=== PATIENT | female | born 1995 | race Two or more races ===

== ENCOUNTER 2019-07-17 08:07 | Outpatient (CLI) | payer OTHER ==
--- NOTE | 2019-07-17 15:34 | MRI Report ---
Reason: PAIN IN RT KNEE Procedure Date: 07/17/2019 Accession Number: [id number] / [id number] Procedure: MRI - Knee RT W/O CPT Code: Final Report FULL RESULT: EXAM: RIGHT KNEE MRI WITHOUT CONTRAST EXAM DATE: 07/17/2019 09:02 AM. CLINICAL HISTORY: Pain in right knee. COMPARISON: None. TECHNIQUE: Multiplanar, multisequence T1-weighted and fluid-sensitive sequences of the knee without contrast. Other: None. FINDINGS: Cruciate ligaments: The anterior and posterior cruciate ligaments appear intact. Medial meniscus: Intact. No tear is identified. Lateral meniscus: Intact. No tear is identified. Collateral ligaments: The medial and fibular collateral ligaments appear intact. Bones and articular surfaces: The medial and fibular collateral ligaments appear intact. Bones and articular surfaces: Mild cartilage surface irregularity and heterogenous signal at the medial facet of the patella. No significant articular cartilage defects. No significant joint effusion. Extensor mechanism: Prominent edema in the lateral infrapatellar fat. The patellar tendon and quadriceps insertion appear intact. IMPRESSION: 1. Lateral infrapatellar fat pad impingement. 2. Mild patellar chondromalacia. RADIA
== END 2019-07-17 08:08 | disposition home or self-care (01) ==
LOC: DI 08:07
PROVIDERS: ATTEND Registered Nurse Diabetes Educator
DX: M22.41 Chondromalacia patellae, right knee (principal); M25.861 Other specified joint disorders, right knee

== ENCOUNTER 2021-05-05 08:25 | Outpatient (CLI) | payer OTHER ==
[2021-05-05 09:03] VITALS: BP 108/65
--- NOTE | 2021-05-05 09:03 | SLEEP CARE CONSULTATION ---
Information from patient questionnaire entered by Oumou Lombardi. I have reviewed and concur with the information entered by Oumou Lombardi. This document represents the service I personally performed and the decisions made by me, Daniela Boyer ARNP. History of Present Illness Service Date and Time: 05/05/2021 0825 Reason for Visit: New patient Chief Complaint: reports: Insomnia, Unrefreshed sleep, Snoring, Fatigue, Frequent awakenings at night Date of Onset: 1+ years Usual bedtime: 1054-9155 Time it takes to fall asleep: 30-60 minutes, sometimes longer Snores at night: Yes Observed to quit breathing while asleep: No Sleeps alone due to snoring: Yes Number of times waking at night: 2-3 Reasons for waking at night: reports: Snoring, Gasping for air (3 times a month), Bathroom, Other (unknown reason) Toss, Turn, or Twitch while sleeping: Yes Recalls having dreams: Yes (most of the time) Usually gets out of bed at: 0615 Feels refreshed in the morning: No Morning headache: Yes (freq/3-4 days of week lasting morning or all day) Sleepy or fatigued during the day: Yes Ever fallen asleep while driving: No Takes day naps: Yes (on avg 5 days a week after woork) Dreams during day naps: Yes Prior sleep studies: No Additional HPI information: I had the pleasure of seeing GAURAV WILLINGHAM today regarding the possibility of her having a sleep disorder. Her current complaints are unrefreshed sleep, snoring, fatigue, frequent night awakenings and insomnia. Her has told her she snores and he will sleep in another room. Patient can take 30-60 minutes to fall asleep, sometimes longer. She feels that she wakes up frequently at night and then will have difficulty going back to sleep. She rarely wakes up feeling rested. 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 Patient is and lives in [place]. Have you smoked in the past 12 months: No Alcohol use: Yes Alcohol amount and frequency: 1-3, 0-2 times/week Caffeine use: Yes Caffeine amount and frequency: 1-2x/week Family History Family history of sleep disordered breathing: No Family Hx Sleep Apnea: Father: Snoring Allergies and Home Medications Drug allergies reviewed: Yes (NKDA) Home medication list reviewed: Yes Allergy and home medication list: Hydroxyzine hydrochloride 25 mg, 4 x day as needed Sertraline 50 mg Tizanidine 2 mg Norgestimate-ethinyl estriadiol Naratriptan 2.5 mg as needed Review of Systems Cardiovascular: denies: high blood pressure Gastrointestinal: reports: heartburn Neurological: reports: headaches Psychiatric: reports: anxiety, depression Ear/Nose/Throat: reports: wisdom teeth removed (upper two left). denies: sinus problems, injury to nose, tonsillectomy Musculoskeletal: reports: joint pain Immunologic: denies: allergies to food or environment Physical Exam Blood Pressure: 108/65 Cuff size: wrist Heart Rate: 77 O2 Saturation: 96 Height: 5 ft 5 in Weight: 151 lb Body Mass Index: 25.1 BMI Classification: Overweight Neck circumference: 12 (inches) HEENT: No craniofacial malformation Nostrils: patent to airflow Mouth and throat: narrow oropharynx Soft palate: long Hard palate: Torus palatinus Uvula: normal Uvula visualization: 100% Mallampati Class I Tongue: enlarged in size with teeth roberts on lateral edges Tonsils: 1+ Neck: normal w/o lymphadenopathy or thyromegaly Heart: regular rate and rhythm Lungs: clear bilaterally Impression and Plan 1. Suspected Obstructive Sleep Apnea-Hypopnea Syndrome, as suggested by a history of loud and irregular snoring, gasping or choking in sleep, morning headache, frequent awakening during the night, unrefreshed sleep, cognitive impairment, and excessive daytime sleepiness. Narrow oropharynx and obesity are common predisposing factors for obstructive sleep apnea-hypopnea syndrome. I recommend proceeding to polysomnography to confirm the diagnosis and to assess severity. If the patient has significant sleep disordered breathing, a manual CPAP titration study will also be performed to find the optimal treatment pressure. I informed the patient of what the sleep studies involve and after some discussion, obtained agreement to proceed. The pathophysiology of obstr uctive sleep apnea-hypopnea syndrome was discussed with the patient and health risks of cardiovascular and cerebrovascular disease if not treated. AASM brochure for obstructive sleep apnea-hypopnea syndrome given and reviewed. 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 Patient agreed to plan. * Schedule polysomnography +- manual CPAP titration study and return in 1-2 weeks after the study to discuss result and initiate therapy. * Avoid long distance driving or driving when feeling sleepy. * Avoid alcohol, sedative and muscle relaxant around bedtime. * Attempt to lose weight. * Review instructions provided by trained office staff on how to prepare for the sleep study. * Return for follow-up after sleep study completed. Counseling Topics: Weight loss health impact Visit Type: In Office Time Spent with Patient (minutes): 24 Provider Statement: I spent 100% of the Face to Face Visit with the patient with greater than 50% spent counseling the patient and coordination of care.
== END 2021-05-05 08:26 | disposition home or self-care (01) ==
LOC: SC 08:25
PROVIDERS: ATTEND Nurse Practitioner Family
DX: R06.83 Snoring (principal); R51.9 Headache, unspecified; G47.8 Other sleep disorders; G47.10 Hypersomnia, unspecified; R41.89 Other symptoms and signs involving cognitive functions and awareness
CPT/HCPCS: 99202; 99212

== ENCOUNTER 2021-05-20 12:08 | Outpatient (CLI) | payer OTHER | END 2021-05-20 12:09 | disposition home or self-care (01) | LOC: SC 12:08 | PROVIDERS: ATTEND Nurse Practitioner Family | DX: R06.83 Snoring (principal); G47.8 Other sleep disorders; R51.9 Headache, unspecified; G47.10 Hypersomnia, unspecified | CPT/HCPCS: 95806 ==

== ENCOUNTER 2021-06-09 12:08 | Outpatient (CLI) | payer OTHER ==
--- NOTE | 2021-06-09 12:19 | SLEEP CARE CONSULTATION ---
Information from patient questionnaire entered by Mendoza Hummel MA. I have reviewed and concur with the information entered by Mendoza Hummel MA. This document represents the service I personally performed and the decisions made by Rosalind sheridan Caren J, ARNP. History of Present Illness Service Date and Time: 06/09/2021 1208 Initial [place] Sleepiness Scale score: 13 (in 2020) Current [place] Sleepiness Scale score: 11 (2020) Additional HPI information: GAURAV WILLINGHAM returns for follow up and results of the recently performed home sleep study. The patient was informed of the following findings: No significant sleep disordered breathing with an average AHI of 1.0 and penny oxygen saturation of 93%. I explained the pathophysiology behind obstructive sleep apnea. Patient does not have sleep apnea and was advised how weight gain could increase the risk of developing sleep apnea in the future. I strongly encouraged the patient to lose weight. Patient has light snoring. Snoring can be reduced by weight loss. Weight loss is best achieved with diet consult. Patient instructed to contact PCP for referral. Snoring can also be treated with an oral appliance from a dentist. Advised to check insurance coverage. In addition, an ENT evaluation can be do to see if other treatment is indicated. Patient counseled not drink alcohol less than 4 hours before bedtime as it can increase snoring and apnea. Patient was cautioned about risks of drowsy driving until sleepiness symptoms resolve. Sleep Study - Results Type of Sleep Study: Home sleep study Prior sleep studies: No Polysomnography/Home Sleep Study results: Physician Impression: The quality of the study is good. The length of the study is adequate (> 240 minutes). Please also see the tabulated and graphic data. 1. No significant sleep disordered breathing with an AHI of 1.0/hr and penny SaO2 of 93%. During the study, the patient had 4 apneas (4 obstructive, 0 central, 0 mixed) and 0 hypopneas. The longest episode lasted 13.0 seconds. The patient slept adequately in supine position (supine AHI was 0.0 and non-supine, 1.11). Allergies and Home Medications Home medication list reviewed: Yes (no changes) Review of Systems Review of systems same as previous: Yes (no changes) Physical Exam Heart Rate: 76 O2 Saturation: 99 Height: 5 ft 5 in Weight: 156 lb 9.6 oz Body Mass Index: 26.0 BMI Classification: Overweight Impression and Plan Snoring but no significant sleep disordered breathing. Patient advised that often weight loss will reduce snoring as well as apnea risk. An oral appliance can also be used for snoring. This would require a dental consultation. Patient cautioned not to use other online appliances as can cause bite issues. A list of accredited dentists in [facility] and one local dentist who makes oral appliances is available in office. Patient is advised to check if insurance will cover. An ENT consult can also be helpful to determine if any other treatment is an option. * Attempt to lose weight * Avoid alcohol consumption near bedtime * The patient is cautioned about driving until sleepiness is completely resolved. * Return as needed. Counseling Topics: Weight loss health impact Visit Type: In Office Time Spent with Patient (minutes): 15 Provider Statement: I spent 100% of the Face to Face Visit with the patient with greater than 50% spent counseling the patient and coordination of care.
== END 2021-06-09 12:09 | disposition home or self-care (01) ==
LOC: SC 12:08
PROVIDERS: ATTEND Nurse Practitioner Family
DX: R06.83 Snoring (principal); G47.8 Other sleep disorders; R53.83 Other fatigue; R51.9 Headache, unspecified
CPT/HCPCS: 99212

== ENCOUNTER 2021-08-11 08:00 | Outpatient (CLI) | payer OTHER | END 2021-08-11 23:59 | LOC: LAB.N 08:00 | PROVIDERS: ATTEND Physician Assistant | DX: U07.1 COVID-19 (principal) ==